=== PATIENT | male | born 1945 | race Caucasian/White ===

== ENCOUNTER 2016-10-23 06:00 | Day surgery (SDC) | payer BC, MEDICARE ==
--- NOTE | ~2016-10-23 | EGD ---
EGD REPORT [facility] [address] [address] NAME: SHAHBAZ HARRINGTON : 43 STATUS : REG [facility]#: [id number] AGE: 71 ADM/REG DATE : 10/23/16 MR#: [id number] REPORT SERV DATE: 10/23/16 DICTATED BY: TYLER STAPLETON DATE: 10/23/16 REPORT STATUS : Draft TRANSCRIBED BY: [employer] DATE: 10/23/16 [facility] Patient Name: Shahbaz Harrington Date of : 1945 Attending MD: TYLER STAPLETON, Procedure Date No Time: 10/23/2016 Procedure: Colonoscopy Indications: Screening for colorectal malignant neoplasm Referring MD: SHANE MONTEMAYOR III Medicines: Sedation Required Anesthesia Staff Assistance, Monitored Anesthesia Care Complications: No immediate complications. Estimated blood loss: None. Procedure: Pre-Anesthesia Assessment: - ASA Grade Assessment: II - A patient with mild systemic disease. After I obtained informed consent, the scope was passed under direct vision. Throughout the procedure, the patient's blood pressure, pulse, and oxygen saturations were monitored continuously. The CF [id number] was introduced through the anus and advanced to the cecum, identified by appendiceal orifice and ileocecal valve. The colonoscopy was performed without difficulty. The patient tolerated the procedure well. The quality of the bowel preparation was good. The colonoscopy was performed without difficulty. The patient tolerated the procedure well. The quality of the bowel preparation was good. Findings: The perianal and digital rectal examinations were normal. Multiple small-mouthed diverticula were found in the sigmoid colon, in the descending colon, in the transverse colon and in the ascending colon. Internal hemorrhoids were found during retroflexion and were Grade I (internal hemorrhoids that do not prolapse). A sessile polyp was found in the rectum. The polyp was 2 mm in size. The polyp was removed with a cold biopsy forceps. Resection and retrieval were complete. Verification of patient identification for the specimen was done. Estimated blood loss was minimal. The exam was otherwise without abnormality on direct and retroflexion views. Impression: - Diverticulosis in the sigmoid colon, in the descending colon, in the transverse colon and in the ascending colon. - Internal hemorrhoids. EGD REPORT [address] [address] NAME: SHAHBAZ HARRINGTON : [birth year] [place]US : [place] [facility] [place] [id number] AGE: 71 ADM/REG DATE : 10/23/16 MR#: [id number] REPORT SERV DATE: 10/23/16 DICTATED BY: TYLER STAPLETON DATE: 10/23/16 REPORT STATUS : Draft TRANSCRIBED BY: [employer] DATE: 10/23/16 - One 2 mm polyp in the rectum. Resected and retrieved. - The examination was otherwise normal on direct and retroflexion views. Recommendation: - Patient has a contact number available for emergencies. The signs and symptoms of potential delayed complications were discussed with the patient. Return to normal activities tomorrow. Written discharge instructions were provided to the patient. - Return to previous diet. - Continue present medications. - Await pathology results. - Repeat colonoscopy for surveillance based on pathology results. Procedure Code(s): --- Professional --- 32675, Colonoscopy, flexible, proximal to splenic flexure; with biopsy, single or multiple Diagnosis Code(s): --- Professional --- K64.0, First degree hemorrhoids K57.30, Diverticulosis of large intestine without perforation or abscess without bleeding K62.1, Rectal polyp Z12.11, Encounter for screening for malignant neoplasm of colon CPT copyright 2013 [employer]. All rights reserved. The codes documented in this report are preliminary and upon certified professional coder review may be revised to meet current compliance requirements. TYLER PIETER, 10/23/2016 8:27 AM Number of Addenda: 0 Note Initiated On: 10/23/2016 8:02 AM Scope Withdrawal Time 0 hours 11 minutes 49 seconds [address] [place] [address]
[~2016-10-23 06:00] MED LIST: ALEVE220 MG PO; C5; DIOVAN320 MG PO; IBU400 PO; ICAPS AREDS SO1 EACH PO; OCUVITE PO; PCET PO
== END 2016-10-23 23:59 | disposition home or self-care (01) ==
LOC: DMU 06:00
PROVIDERS: Internal Medicine Gastroenterology
PROC: 0DBP8ZZ Excision of Rectum, Via Natural or Artificial Opening Endoscopic (ICD-10-PCS; principal; 2016-10-23 08:30)
DX: Z12.11 Encounter for screening for malignant neoplasm of colon (principal); K62.1 Rectal polyp; K64.0 First degree hemorrhoids; K57.30 Diverticulosis of large intestine without perforation or abscess without bleeding; H35.30 Unspecified macular degeneration; I10 Essential (primary) hypertension; M19.90 Unspecified osteoarthritis, unspecified site; Z79.899 Other long term (current) drug therapy
CPT/HCPCS: 88305